=== PATIENT | female | born 1995 | race Caucasian/White ===

== ENCOUNTER 2021-04-16 10:59 | Emergency (ER) | payer MEDICAID ==
[~2021-04-16] VITALS: Ht 157.5 cm; Wt 64.0 kg
[2021-04-16] MEDS ORDERED: IPRATROPIUM BROMIDE (0.02%) 0.5MG/2.5ML NEB HHN STA (11:24)
[2021-04-16] MEDS ORDERED: PREDNISONE 20MG TABLET PO STA (11:24)
[2021-04-16] MEDS ORDERED: ALBUTEROL (0.083%) 2.5MG/3ML NEB HHN SCH (11:30)
[2021-04-16 13:00] VITALS: BP 104/58
[2021-04-16] MEDS ORDERED: ALBU6.7H9 INH (13:02)
[2021-04-16] MEDS ORDERED: SALM50DI INH (13:02)
[2021-04-16] MEDS ORDERED: P50 MT (13:02)
== END 2021-04-16 13:15 | disposition home or self-care (01) ==
LOC: EDBD 10:59 → ER 10:59
DX: J45.901 Unspecified asthma with (acute) exacerbation (principal)
CPT/HCPCS: 94640; 99283; J7512; Z7610